=== PATIENT | female | born 1995 | race African-American/Black ===

== ENCOUNTER 2024-04-01 10:08 | Emergency (ER) | payer OTHER, SELFPAY ==
[2024-04-01 10:22] VITALS: BP 109/63; PULSE 93; RESP 16; TEMP 36.2; O2SAT 99
--- NOTE | 2024-04-01 10:27 | ED.SKABFB ---
HPI - Skin/Abscess/Foreign Bdy General Chief complaint: Skin/Abscess/Foreign Body Stated complaint: right breast red spot,hurts Time Seen by Provider: 04/01/24 10:27 Source: patient Mode of arrival: ambulatory Limitations: no limitations History of Present Illness HPI narrative: 28-year-old female presents complaint redness, swelling, tenderness to right breast. Symptoms started yesterday. Afebrile. No similar symptoms in the past. All systems reviewed and negative except as noted above. Related Data Allergies Allergy/AdvReac Type Severity Reaction Status Date / Time No Known Allergies Allergy Verified 04/01/24 10:27 Review of Systems Review of Systems: CONSTITUTIONAL: Denies fever, chills, or sweats. EYES: Denies visual changes, redness, or discharge. ENT: Denies rhinorrhea, congestion, sore throat, or otalgia. CARDIOVASCULAR: Denies chest pain, palpitations, or edema. RESPIRATORY: Denies cough or dyspnea. GASTROINTESTINAL: Denies abdominal pain, nausea, vomiting, or diarrhea. GENITOURINARY: Denies dysuria or hematuria. SKIN: Denies rash or itching. Reports redness, swelling and tenderness to right breast MUSCULOSKELETAL: Denies back pain, joint pain, or myalgia. NEUROLOGIC: Denies headache, numbness, or weakness. PSYCHIATRIC: Denies anxiety or depression. All other systems reviewed are negative, except as documented in HPI. PMFSH Comments At time of signature, agree with nursing past medical, surgical, social and family history. There is no relevant family history pertinent to the presenting complaint. Exam Narrative: GENERAL: This is a well-nourished, well-developed patient, in no apparent distress. HEAD: normocephalic, atraumatic. EYES: PERRL. Sclera clear/white. Vision is grossly intact. EARS: External ears normal NOSE: External nose normal NECK: Neck supple, non-tender without lymphadenopathy, masses or thyromegaly. CARDIOVASCULAR: Regular rate and rhythm without murmurs, gallops, or rubs. RESPIRATORY: Clear to auscultation. Breath sounds equal bilaterally. No wheezes, rales, or rhonchi. SKIN: warm, Dry, intact , good texture and turgor. erythema with mild swelling to R breast to medial aspect of areola. tender on palpation. no fluctuance concerning for abscess NEURO: awake, alert, and oriented to person, place and time. There were no obvious focal neurologic abnormalities. EXTREMITIES: No joint tenderness, effusion, or edema noted. Course Course Level of Care: Express Care Visit Vital Signs Vital signs: Vital Signs Temperature 36.2 C L 04/01/24 10:22 Pulse Rate 93 04/01/24 10:22 Respiratory Rate 16 04/01/24 10:22 Blood Pressure 109/63 04/01/24 10:22 Pulse Oximetry 99 04/01/24 10:22 Oxygen Delivery Room Air 04/01/24 10:22 Temperature 36.2 C L 04/01/24 10:22 Pulse Rate 93 04/01/24 10:22 Respiratory Rate 16 04/01/24 10:22 Blood Pressure 109/63 04/01/24 10:22 Pulse Oximetry 99 04/01/24 10:22 Oxygen Delivery Room Air 04/01/24 10:22 reviewed MDM - Skin/Abscess/Foreign Bdy MDM Narrative Medical decision making narrative: Please be advised this is a medical document. It is intended for [id number] communication. It is written in medical language and may contain unfamiliar abbreviations or verbiage. Medical documents are intended to carry relevant information, facts as evident, and the clinical opinion of the practitioner at the time of the encounter. This report may have been done utilizing a voice recognition system. Attempts have been made to correct errors. However, there may be uncorrected grammatical, spelling, and recognition errors present. The file time of this note does not necessarily represent the time of service. Discharge Plan Discharge Clinical Impression: Cellulitis of right breast Patient Disposition: Home, Self-Care Condition: Stable Instructions: Antibiotic Form, Cellulitis (ED) Additional Instructions: take antibiotic as prescribed until gone. Take Tylenol every 6-8 hours as needed for pain. Follow-up with your news specialist if not improving. Patient Language: [place] Prescriptions: New cephalexin 500 mg capsule 500 mg PO Q8H 7 Days Qty: 21 0RF Follow-up/Referrals: [facility] [Primary Care Provider] - Time of Disposition: 10:31
== END 2024-04-01 10:35 | disposition home or self-care (01) ==
PROVIDERS: Emergency Provider Nurse Practitioner Family
DX: N61.0 Mastitis without abscess (principal)
CPT/HCPCS: 99203; G0463